=== PATIENT | male | born 1970 | race Caucasian/White ===

== ENCOUNTER 2021-05-07 18:23 | Emergency (ER) | payer OTHER ==
[2021-05-07 19:50] LABS: HEMOGLOBIN 15.1 gm/dl (14.0-17.5); RED BLOOD COUNT 4.61 M/UL (4.20-5.50); WHITE BLOOD COUNT 11.7 K/UL (4.5-11.0)
[2021-05-07 20:14] LABS: BUN/CREATININE RATIO 9 (0-10)
[2021-05-07] MEDS ORDERED: BENTYL 20MG TAB20 MG PO (20:41)
[2021-05-07] MEDS ORDERED: LODINE CAP 300300 MG PO (20:41)
== END 2021-05-07 21:00 | disposition home or self-care (01) ==
LOC: ER1 18:23
PROVIDERS: Physician Assistant
DX: K57.32 Diverticulitis of large intestine without perforation or abscess without bleeding (principal); F17.210 Nicotine dependence, cigarettes, uncomplicated
CPT/HCPCS: 80053; 83690; 85025; 96374; 96375; 99284; J1885; J2405; J7030

== ENCOUNTER → 2021-05-07 | Outpatient (CLI) | payer OTHER ==
[~2021-05-07] MED LIST: BENTYL 20MG TAB20 MG PO; LODINE CAP 300300 MG PO
== END ==
LOC: KOH-I 15:00
DX: R10.0 Acute abdomen (principal); K57.32 Diverticulitis of large intestine without perforation or abscess without bleeding
CPT/HCPCS: 74176; Q9967